=== PATIENT | male | born 1965 | race Caucasian/White ===

== ENCOUNTER 2016-12-02 19:41 | Emergency (ER) | payer OTHER ==
[~2016-12-02] VITALS: Ht 177.8 cm; Wt 126.0 kg
[~2016-12-02 19:41] MED LIST: AMLO-145 PO; ASPI81TA3 PO; BUPR150T3 PO; BUPR150T4 PO; BUSP5TAB20 PO; CLIN150C2 PO; FLUO10CA17 PO; FLUO20CA22 PO; FOLI-49 PO; GABA300C16 PO; INSU100C3 SQ; INSU100C5 SQ; INSULIN; LISI20TA11 PO; METF500T4 PO; MULT-761 PO; OMEG-135 PO; OMEP20CA16 PO; POSA200O2 PO; PRAV40TA76 PO; SIMV20TA2 PO; TEMA15CA PO; TRAZODONE; UDSYM PO
[2016-12-02 19:51] VITALS: Ht 177.8 cm; Wt 126.0 kg
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
[2016-12-02] MEDS ORDERED: POLY10DR19 BOTH EYES (22:05)
== END 2016-12-02 22:11 | disposition home or self-care (01) ==
LOC: FTE 19:41
DX: S05.91XA Unspecified injury of right eye and orbit, initial encounter (principal); S05.92XA Unspecified injury of left eye and orbit, initial encounter; I10 Essential (primary) hypertension; E11.9 Type 2 diabetes mellitus without complications; F17.210 Nicotine dependence, cigarettes, uncomplicated; Y08.89XA Assault by other specified means, initial encounter; Z79.84 Long term (current) use of oral hypoglycemic drugs; Z79.82 Long term (current) use of aspirin; Z79.4 Long term (current) use of insulin
CPT/HCPCS: 99283